=== PATIENT | female | born 1955 | race Caucasian/White ===

== ENCOUNTER 2024-04-24 11:32 | Emergency (ER) | payer MEDICARE, OTHER, SELFPAY ==
[2024-04-24 11:53] VITALS: BP 114/67; PULSE 69; RESP 18; TEMP 36.9; O2SAT 97; BMI 22.7
--- NOTE | 2024-04-24 12:39 | ED_ITS ---
HPI - General Adult General Date Seen: 04/24/24 Chief complaint: Dizziness/Vertigo Stated complaint: Vertigo/lightheaded Time Seen by Provider: 04/24/24 12:32 History of Present Illness HPI narrative: 68-year-old female presenting to the ER today for spinning dizziness and vertigo. She is generally healthy. 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 She her current symptoms began yesterday evening at about 11 30 or 11:45 p.m. when she was going to bed. She was feeling healthy and normal prior to going to bed. When she laid down in bed, she went from sitting up to laying flat on her back and had abrupt onset of spinning dizziness and vertigo. It lasted about 30 seconds and got better after she sat up and held still. She noticed it happened 2 or 3 more times each time it was triggered by laying down in bed and better by holding still and sitting. She was able to sleep last night but was woken multiple times because when she would roll over she would get dizziness. She felt spinning and a bit nauseous. She did not vomit. This morning when she got up she initially thought she was feeling okay. She was apprehensive about walking because she was afraid of my trigger dizziness and imbalance but she was able to walk. She was able to get up, do her morning routine and even brush her teeth and feel fine. She always does 20 squats in the morning and while doing or squat she again triggered an episode of spinning. She also noted the episode was triggered by bending over to touch her toes. She is not having any other symptoms with the vertigo. No headache. No blurry vision. No vomiting. No focal numbness or weakness. No speech disturbance. No facial droop. She does not have a headache. No recent head trauma. She is not anticoagulated. Incidentally she has also had other neurologic events. For the past 3 years ago so she has had brief episodes that last about 5/10 seconds each time where she will abruptly have difficulty with words. She will not be able to talk and will have trouble reading and understanding letters and will not be able to write letters. No other symptoms come with these episodes. She has already had a workup, through [facility] neurology clinic about 3 years ago. She apparently had a brain MRI that was normal and an EEG that was normal. She says her neurologist told her that she was having seizures. He prescribed a seizure medication and told her to start taking it. She was unconvinced about the diagnosis and says reluctant take the medications so she never took it. She also recalls that she had a pretty negative interaction with that neurologist. She says she will never go back to see that provider again. She has been having these episodes. They do not happen every day but they happen most days. Typically once per day. Last week she actually had 3 episodes in 1 day but that was unusual for her. Often times she can go several days, even up to 4 or 5 days without having an event. She is not having any increased frequency of those events and has not had any last night or today. Related Data Previous Rx's ?Medication ?Instructions ?Recorded meclizine 25 mg chewable tablet 25 mg PO TID PRN #15 tabs 04/24/24 (Antivert) Allergies Allergy/AdvReac Type Severity Reaction Status Date / Time toothpaste Allergy Intermediate Blister Uncoded 04/24/24 11:52 Exam Narrative: Exam Narrative: Constitutional: Appears well-developed and well-nourished. Alert. Conversant. Non toxic. HENT: Head: Atraumatic. No depressed skull fracture, Raccoon Eyes, Martinez's sign, or hemotympanum. Face normal. TMs normal Canals and TMs are normal bilaterally. Nose: Nose normal. Mouth/Throat: Oral mucosa is clear and moist. no trismus. Pharynx normal. Tonsils symmetric. No tonsillar enlargement, erythema, or exudate. Eyes: Conjunctivae normal. EOM normal. Pupils equal, round, and reactive to light. No scleral icterus. Neck: Normal range of motion. Neck supple. No tracheal deviation present. Cardiovascular: Normal rate, regular rhythm. No gallop. No friction rub. No murmur heard. Symmetric radial artery pulses Pulmonary/Chest: Effort normal. No stridor. No respiratory distress. No wheezes. No rales. No rhonchi . No tenderness. Abdominal: Soft. Bowel sounds normal. No distension. No mass. No tenderness. No rebound. No guarding. Musculoskeletal: RUE: Normal range of motion. No tenderness. No deformity LUE: Normal range of motion. No tenderness. No deformity RLE: Normal range of motion. No edema. No tenderness. No deformity LLE: Normal range of motion. No edema. No tenderness. No deformity Lymph: No cervical adenopathy. Neurological: Mental status normal. Attention normal. Alert and oriented x3. GCS 15. Memory normal. Speech fluent. Cognition normal. Cranial Nerves intact II-XII except I did not formally test gag or visual acuity. EOMI. Palate elevates symmetrically and tongue protrudes in the midline. Strength: 5/5 trapezius on the right and left 5/5 deltoid on the right and left 5/5 biceps on the right and left 5/5 triceps on the right and left 5/5 military logistics specialist on the right and left 5/5 thumb opposition on the right and le ft 5/5 finger abduction on the right and le ft 5/5 hip flexors (L3) on the right and le ft 5/5 quadriceps (L4) on the right and lef t 5/5 tibialis anterior on the right and l eft 5/5 EHL (L5) on the right and left 5/5 gastrocnemius (S1) on the right and left 5/5 hamstring on the right and left Sensation intact to light touch in both upper extremities (C4-T1) Sensation intact to light touch in Both lower extremities (L4-S1). Finger to nose and coordination normal. Gait normal. No ataxia. She does not have any vertigo when sitting up with her head facing forward but vertigo was triggered when she turns her head either to the left or to the right. She feels a brief but intense episode of spinning that lasts less than 30 seconds or so. [place]-Hallpike is negative in both directions but her vertigo is triggered by sitting up or bending down the touch her toes, or turning her head to the left or to the right. No other symptoms aside from vertigo. Skin: Skin is warm and dry. No rash noted. No pallor. Normal capillary refill. Psychiatric: Normal mood. Normal affect. Const: Vital Signs, click to edit/add: Vital Signs - 24 hr 04/24/24 11:53 Temperature 98.4 F Pulse Rate [Pulse Oximeter] 69 Respiratory Rate 18 Blood Pressure [Ri ght Upper Arm] 114/67 Pulse Oximetry 97 Oxygen Delivery Me thod Room Air Course Vital Signs Vital signs: Initial Vital Signs Temperature 98.4 F 04/24/24 11:53 Temperature Source Temporal Artery Scan 04/24/24 11:53 Pulse Rate 69 04/24/24 11:53 Respiratory Rate 18 04/24/24 11:53 Blood Pressure 114/67 04/24/24 11:53 Blood Pressure Mean 82 04/24/24 11:53 Pulse Oximetry 97 04/24/24 11:53 Oxygen Delivery Method Room Air 04/24/24 11:53 Vital Signs Temperature 98.4 F 04/24/24 11:53 Pulse Rate 69 04/24/24 11:53 Respiratory Rate 18 04/24/24 11:53 Blood Pressure 114/67 04/24/24 11:53 Pulse Oximetry 97 04/24/24 11:53 Oxygen Delivery Method Room Air 04/24/24 11:53 Temperature 98.4 F 04/24/24 11:53 Pulse Rate 69 04/24/24 11:53 Respiratory Rate 18 04/24/24 11:53 Blood Pressure 114/67 04/24/24 11:53 Pulse Oximetry 97 04/24/24 11:53 Oxygen Delivery Method Room Air 04/24/24 11:53 Medications Administered Medications: Discontinued Medications Generic Name Dose Route Start Last Admin Trade Name Freq PRN Reason Stop Dose Admin Meclizine HCl 25 mg 04/24/24 13:34 04/24/24 14:10 Meclizine Hcl 25 Mg Tablet PO 04/25/24 14:00 25 mg TID PRN Administration Medical Decision Making [facility] Narrative Medical decision making narrative: This patient presents for evaluation of dizziness c/w vertigo that began abruptly last night when she went from sitting to lying down flat in her bed. It has been recurrent in brief but intense episodes ever since then with certain movements including turning her head to the right or left, and or bending forward to tie her shoes, or going from sitting to laying or laying to sitting. No other current neurologic symptoms to go with vertigo.. The differential diagnosis of vertigo is broad and includes common etiologies such as menieres disease, labyrinthitis, benign positional vertigo, otitis media, etc. More serious etiologies considered include central etiologies such as tumor, intracerebral bleed, dissection, ischemic cerebral vascular accident. The history, physical exam including detailed neurologic exam, and workup in the emergency room suggests a benign cause of vertigo today. Patient feels improved after interventions noted above. Further outpatient management is indicated with vertigo medications. History and clinical exam exam is reassuring. By history this is very suspicious for BPPV. I am not able to trigger symptoms by Delroy-Hallpike, suggesting this is probably not in the posterior canal. Suspect she probably has BPPV is affecting a different canal. No indication for advanced imaging at this point (CT/MRI) as there are no definite signs of a central and concerning etiology for the vertigo. Vertigo precautions given for home. Incidentally she also notes that she has had another pattern of neurologic symptoms where she gets very brief events where she has trouble with what sounds like receptive and expressive aphasia. These happen every couple of days or so for the past 3 years and typically last 5 or 10 seconds and resolve on their own. She has already had a workup through [facility] 3 years ago and was told by that doctor that these were probably partial seizures. He recommended seizure meds at that time. However she was unconvinced by the recommendation and never started the meds. She is not having any of those events since her and vertigo symptoms started yesterday. She is clearly having fluent speech here. She has no other focal neurologic deficits in this point. At this point I do not think she needs a workup for stroke or TIA. However, I discussed in detail with the patient and her that she really should have another workup with Neurology to determine whether not these actually are partial seizures. If they are, they would warrant treatment. She will follow- up with her PCP to arrange another neurology consult. Discharge Plan Discharge Clinical Impression: Benign paroxysmal positional vertigo Patient Disposition: Home, Self-Care Condition: Stable Instructions: Vertigo (DC), Benign Paroxysmal Positional Vertigo (DC) Additional Instructions: As we discussed, please come back to the ER right away if you have worsening vertigo, or any other concerning symptoms such as headache, uncontrolled nausea or vomiting, spells of vertigo that lasts longer than 1 minute, any new trouble with her speech, numbness or weakness in her arms or legs, or any problems. You can use meclizine every 8 hours as needed help suppress the vertigo symptoms. Avoid dangerous activities like skiing until you are free from vertigo. Please recheck with your regular doctor next week to recheck for your vertigo and ask your regular doctor to give you a new referral for a neurologist to check the events related to your speech. Remember, if you have any problems, please come back to the ER right away. Prescriptions: New meclizine [Antivert] 25 mg tablet,chewable 25 mg PO TID PRNQty: 15 0RF Follow Up/Referrals: Chelly Metcalf MD [Primary Care Provider] - Stand Alone Forms: [id number] Info Instructions
[2024-04-24] MEDS: MECLIZINE HCL 25 MG TABLET PO (14:10)
== END 2024-04-24 14:24 | disposition home or self-care (01) ==
LOC: ED 14:17
PROVIDERS: Emergency Provider Emergency Medicine; PCP Family Medicine
DX: H81.13 Benign paroxysmal vertigo, bilateral (principal)
CPT/HCPCS: 99283; A9270

== ENCOUNTER 2025-02-04 17:37 | Observation (INO) | payer MEDICARE, OTHER, SELFPAY ==
[2025-02-04] VITALS (20 sets, daily range): BP systolic 126–163; BP diastolic 88–106; PULSE 56–72; RESP 12–153; TEMP 36.4–37.1; O2SAT 95–100; BMI 23.5; BMI 23.7
--- OUTSIDE RECORDS SUMMARY | 2025-02-04 17:39 | XMS_ITS | Clinical Summary ---
Author Organization [facility] Address [address] [place] [address]. [place] [address] Care Team Providers Care Sales And Management Trainee Name Role Phone Chelly Metcalf Primary Care Provider [phone] Roberto Barclay MD Unavailable + [phone] Allergies Active Allergy Reactions Criticality Noted Date Comments Epinephrine Palpitations Low 09/22/2011 Other Reaction(s): Tachycardia Noted at the Dental office Medications vitamin C (ASCORBIC ACID) 500 MG tablet Take 500 mg by mouth. Active calcium carbonate 500 mg, elemental, (OSCAL 500) 1250 (500 Ca) MG TABS tablet daily. Activ e VITAMIN E PO Take by mouth. Active lamoTRIgine (LAMICTAL) 25 MG tabletIndicatio ns:Simple partial seizures (H),Spells of speech arrest Take 1 tablet (25 mg) by mouth 2 times daily. 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 Gender Identity Not on file Sexual Orientation Not on file Last Filed Vital Signs Vital Sign Reading Time Taken Comments Blood Pressure 125/80 08/26/2024 11:32 AM CDT Pulse 60 08/26/2024 11:32 AM CDT Temperature - - Respiratory Rate - - Oxygen Saturation - - Inhaled Oxygen Concentration - - Weight 60.3 kg (133 lb) 08/26/2024 11:32 AM CDT Height 160 cm (5' 3) 08/26/2024 11:32 AM CDT Body Mass Index 23.56 08/26/2024 11:32 AM CDT Plan of Treatment Upcoming Encounters Date Type Department Care Team (Late st Contact Info) Description 03/31/2025 10:00 AM AGRICULTURAL REAL ESTATE AGENT Office Visit [facility] [place] [address] [place] [address] Roberto Barclay MD [address] [place] [address] Health Maintenance Due Date Last Done Comments ADVANCE CARE PLANNING 1955 ANNUAL REVIEW OF HM ORDERS 1956 CT COLONOGRAPHY 1956 DEXA 1955 DIABETES SCREENING 1955 FIT 1956 FLEX SIG 1956 sDNA (Cologuard) 1956 HEPATITIS C SCREENING 1974 LIPID 1996 PNEUMOCOCCAL VACCINE 50+ YEARS (1 of 1 - PCV) 2006 ZOSTER VACCINE (1 of 2) 2006 FALL RISK ASSESSMENT 2021 DTAP/TDAP/TD VACCINE (2 - Tdap) 09/21/2021 09/22/2011 COVID-19 VACCINE (1 - 2024-2 6 season) 2024 INFLUENZA VACCINE (#1) 2024 MEDICARE ANNUAL WELLNESS VISIT 06/07/2025 06/07/2024 MAMMO SCREENING 06/07/2026 06/07/2024, 06/07/2024, 04/05/2022 RSV VACCINE (1 - 1-dose 75+ series) 08/23/2031 COLONOSCOPY 06/28/2032 06/28/2022 COLORECTAL CANCER SCREENING 06/28/2032 PHQ-2 (once per calendar year) Completed 08/26/2024 HPV VACCINE (No Doses Required) Completed MENINGITIS VACCINE Aged Out No longer eligible based on patient's age to complete this topic Insurance [employer] [facility] Care Teams Sales And Management Trainee Relationship Specialty Start Date End Date Chelly Metcalf [address] [place] [address] PCP - General Family Medicine 07/17/24 Roberto Barclay MD [address] [place] [address] Assigned Neuroscience Provider 09/20/24
--- OUTSIDE RECORDS SUMMARY | 2025-02-04 17:39 | XMS_ITS | Clinical Summary ---
Author Organization [facility] Address [address] [place] [id number] Care Team Providers Care Plant Maintenance Mechanic Name Role Phone Elsewhere, Pcp Primary Care Provider Unavailabl e Source Comments Patient records contain information from all sites at [facility]. For routine questions regarding patient records, call [phone] during business hours, M-F 8:00 AM - 5:00 PM Central Time. Record requests for emergency care only can be directed to [phone] at any time.[facility] Allergies Active Allergy Reactions Criticality Noted Date Comments Epinephrine Palpitations Low 09/22/2011 Noted at the Dental office Fluoride Toothpaste Other (see comments) 2021 Swollen lips, mouth Medications calcium carbonate/vitam in D3 (CALCIUM WITH VITAMIN D ORAL) Calcium 600+D 1 Active multivitamin capsule multivitamin 1 Active omega-3/dha/epa /dpa/fish oil (OMEGA-3 2100 ORAL) Take 1 capsule by mouth daily. 1 Active ascorbic acid, vitamin C, (VITAMIN C) 500 mg tablet Take 500 mg by mouth daily. Active latanoprost (XALATAN) 0.005 % ophthalmic solution Administer 1 drop into both eyes at bedtime. 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 Bilateral 0 12/04/2023 Resolved Problems Problem Noted Date Diagnosed Date Resolved Date Glaucoma Open-Angle Mild Stage 04/01/2022 12/04/2023 Family History Medical History Relation Name Comments Cardiac arrhythmia Father pacemaker Lymphoma Father Cataracts Mother Coronary artery disease Mother Glaucoma Mother Glaucoma Sister Hypertension Sister Amblyopia Neg Hx Blindness Neg Hx Macular degeneration Neg Hx Retinal degeneration Neg Hx Retinal detachment Neg Hx Relation Name Status Comments Father Mother Sister Social History Tobacco Use Types Packs/Day Years Used Date Smoking Tobacco: Never Smokeless Tobacco: Never Tobacco Cessation:Counseling Given: Not Answered Alcohol Use Standard Drinks/Week Comments Never 0 (1 standard drink = 0.6 oz pur e alcohol) Comments Unknown Sex and Gender Information Value Date Recorded Sex Assigned at Not on file Legal Sex Female 6:02 AM CORRESPONDENCE TRANSCRIBER Gender Identity Not on file Sexual Orientation Not on file Plan of Treatment Health Maintenance Due Date Last Done Comments Bone Density Scan (Osteoporosis Screen) 1956 CT Colonography 1956 Cologuard 1956 FIT 1956 Hepatitis C Screening 1956 Pneumococcal vaccine (50+ years) (1 of 1 - PCV) 2006 Zoster Vaccines (1 of 2) 2006 DTaP,Tdap,and Td Vaccines (2 - Tdap) 09/21/2021 09/22/2011 Depression Screening (Annual PHQ-2) 05/01/2024 Fall Risk Screen (Annual) 05/01/2024 COVID-19 Vaccine (1 - 2024- season) 2024 Influenza Vaccine (#1) 2024 Mammogram 06/07/2025 06/07/2024, 02/10/2024, 04/05/2022, Additional history exists Fasting Glucose for Diabetes Screening 06/07/2027 06/07/2024, 06/07/2024, 12/25/2020, Additional history exists Colonoscopy 06/28/2032 06/28/2022 Colorectal Cancer Screening 06/28/2032 IPV Vaccines Aged Out No longer eligi ble based on patient's age to complete [place] [address] MEDICARE Care Teams Plant Maintenance Mechanic Relationship Specialty Start Date End Date Elsewhere, Pcp PCP - General Family Medicine 08/21/17
--- OUTSIDE RECORDS SUMMARY | 2025-02-04 17:39 | XMS_ITS | Clinical Summary ---
Author Organization Active [facility] Address [address] [place] [id number] Care Team Providers Care Spare Fixer Name Role Phone Chelly Metcalf MD Primary Care Provide r Allergies Active Allergy Reactions Criticality Noted Date Comments Epinephrine Tachycardia 09/22/2011 Noted at the Dental office Fluoride Toothpaste Other - Describe In Comment Field 11/26/2021 Swollen lips, mouth No Known Drug Allergies 01/31/2008 Medications ascorbic acid, vitamin C, (VITAMIN C) 500 mg tablet Take 500 mg by mouth. Active calcium carbonate (OS-EMY 500) 500 mg calcium (1,250 mg) tablet Daily Active multivitamin (MVI) tablet Take 1 Tablet by mouth once daily. 06/07/2024 Active lamoTRIgine 25 mg tablet Take 25 mg by mouth. 10/22/2024 Active Active Problems Problem Noted Date Diagnosed Date Personal history of colonic polyps 09/07/2011 Overview (06/28/2022): Colonoscopy 08/2011 diverticulosis repeat in 5 years Colonoscopy 06/2022 diverticulosis , repeat in 7-10 years Resolved Problems Problem Noted Date Diagnosed Date Resolved Date Alcoholism 05/03/2021 06/07/2024 Encounters Date Type Department Care Team Description 01/29/2025 9:45 AM CDT Office Visit [facility] [address] [address] Edith Palomo, Derm Problem 01/29/2025 Travel from Last 3 Months Immunizations Immunization Administration Dates Next Due DTaP 09/22/2011 Family History Medical History Relation Name Comments No Known Problems Daughter Reva Winter Heart Disease Father Julio Wallace pacemaker Other Father Julio Wallace MS Glaucoma Mother Mackenzie Wallace Heart Disease Mother Mackenzie Wallace stents Hemochromatosis Sister 1 Mishel Thyroid Disease Sister 2 Giovanna Overactive Diabetes Sister 3 Marizol Glaucoma Sister 4 Carlee Hemochromatosis Sister 4 Carlee Thyroid Disease Sister 4 Carlee Underactive Cancer-breast Sister 6 Mayo Hypertension Sister 6 Mayo No Known Problems Son 1 Danielwinter No Known Problems Son 2 winter Relation Name Status Comments Brother Jaguar Alive Daughter Reva Winter Alive Father Julio Wallace Alive Maternal Grandfather Maternal Grandmother Mother Mackenzie Wallace Alive Paternal Grandfather Paternal Grandmother Sister 1 Mishel Alive Sister 2 Giovanna Alive Sister 3 Marizol Alive Sister 4 Carlee Alive Sister 5 Shikha Alive Sister 6 Mayo Alive Sister 7 Shereen Alive Son 1 winter Alive Son 2 winter Alive Social History Tobacco Use Types Packs/Day Years Used Date Smoking Tobacco: Former Cigarettes 1 20 Smokeless Tobacco: Former Quit: 09/09/1993 Tobacco Cessation:Counseling Given: Yes Alcohol Use Standard Drinks/Week Comments No 0 (1 standard drink = 0.6 oz pur e alcohol) PHQ-2 Answer Date Recorded PHQ-2 TOTAL SCORE 0 06/07/2024 Social Connections Answer Date Recorded Do you often feel lonely or isolated from those around you? 0 06/07/2024 Financial Resource Strain Answer Date R ecorded Difficulty of Paying Living Expenses 3 06/07/2024 Difficulty of Paying Living Expenses Not on file 06/07/2024 Food Insecurity Answer Date Recorded Do you worry your food will run out before you are able to buy more? 1 06/07/2024 Transportation Needs Answer Date Record ed Does lack of transportation keep you from medica l appointments? 1 06/07/2024 Does lack of transportation keep you from work, meetings or getting things that you need? 1 06/07/2024 Housing Stability Answer Date Recorded What is your housing situation today? 1 06/07/2024 Utilities Answer Date Recorded Do you have trouble paying f or utilities (for example, heat, electricity, water, phone)? 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 Not on file Not on file Obstetrics History Last Filed Vital Signs Vital Sign Reading Time Taken Comments Blood Pressure 84/52 06/07/2024 8:19 AM WEB METHODS DEVELOPER Pulse 64 06/07/2024 8:19 AM WEB METHODS DEVELOPER Temperature 36.8 C (98.3 F) 05/03/2021 3:52 PM WEB METHODS DEVELOPER Respiratory Rate 16 06/28/2022 3:35 PM WEB METHODS DEVELOPER Oxygen Saturation 99% 06/07/2024 8:19 AM WEB METHODS DEVELOPER Inhaled Oxygen Concentration - - Weight 59.9 kg (132 lb) 06/07/2024 8:19 AM WEB METHODS DEVELOPER Height 160 cm (5' 3) 06/07/2024 8:19 AM WEB METHODS DEVELOPER Body Mass Index 23.38 06/07/2024 8:19 AM WEB METHODS DEVELOPER Plan of Treatment Health Maintenance Due Date Last Done Comments Tetanus booster 08/23/1967 Hepatitis C screening for age 18-79 1974 Pneumococcal series for age 50+ (1 of 1 - PCV) 2006 Zoster (shingles) series for age 50+ (1 of 2) 2006 DEXA/DXA scan for age 65+ 2021 COVID-19 vaccine series (1 - season) 2024 Influenza Vaccine (#1) 2024 BMI (ht and wt on same day) for age 18+ 06/07/2025 06/07/2024, 11/02/2020, 10/14/2020, Additional history exists Depression screening for age 12+ 06/07/2025 06/07/2024, 05/04/2021, 05/03/2021 Mammogram for age 45-75 06/07/2025 06/07/19, 04/05/2022, 10/14/2020, Additional history exists Medicare Wellness for age 65+ 06/08/2025 06/07/2024 Lipids for age 45-75 06/07/2029 06/07/2024, 10/14/2020, 12/23/2016, Additional history exists Colonoscopy through age 75 06/28/202906/28, 06/28/2022, 01/13/2017, Additional history exists RSV vaccine for adults or (1 - 1-dose 75+ series) 08/23/2031 Hepatitis B series for 19+ Aged Out N o longer eligible based on patient's age to complete this topic Procedures Procedure Name Priority Date/Time Associated Diagnosis Comments XR MAMMO CECILIO BILAT SCREEN Routine 06/07/2024 9:33 AM WEB METHODS DEVELOPER Visit for screening mammogram LIPID PANEL W REFLEX MEASURED LDL Routine 06/07/2024 9:10 AM WEB METHODS DEVELOPER Lipid screening COLONOSCOPY 06/28/2022 1:52 PM WEB METHODS DEVELOPER from Last 3 Months or Most Recently Relevant to Health Maintenance Results * XR MAMMO CECILIO BILAT SCREEN (06/07/2024 9:33 AM WEB METHODS DEVELOPER) Anatomical Region Laterality Modality BREASTS, Breast Left, Breast Right Bilateral Mammography Impressions 06/07/2024 2:02 PM WEB METHODS DEVELOPER There is no radiographic evidence for malignancy. Recommend annual mammograms. MAMMOGRAM ASSESSMENT: ACR 1 Negative PATIENTS: You will also receive a letter with your examination results in an easy to read format. If you have questions about your results, please contact your referring provider. Narrative 06/07/2024 2:02 PM WEB METHODS DEVELOPER For Patients: As a result of the Century Cures Act, medical imaging exams and procedure reports are released immediately into your electronic medical record. You may view this report before your referring provider. If you have questions, please contact your health care provider. XR MAMMO CECILIO BILAT SCREEN [[id number]] CLINICAL HISTORY: This is an asymptomatic 68 y.o. patient. INDICATION FOR EXAM: Mammogram Screening. TECHNIQUE: CC & MLO views were obtained. This study was evaluated with the assistance of Computer-Aided Detection. Breast Tomosynthesis was used in interpretation. COMPARISON FILM: Yes 04/05/22 [facility] 10/14/20 [facility] FINDINGS: There are scattered areas of fibroglandular density. There are no dominant masses, suspicious micro calcifications or areas of architectural distortion. us Chelly Metcalf MD MAMMO Final Result * (ABNORMAL) LIPID PANEL W REFLEX MEASURED LDL (06/07/2024 9:10 AM WEB METHODS DEVELOPER) CHOLESTEROL, TOTAL 231(H) <200 mg/dL [facility] HDL CHOLESTEROL 79 > OR = 50 mg/dL [facility] TRIGLYCERIDES 100 <150 mg/dL [facility] LDL-CHOLESTEROL 131(H) mg/dL (calc) [facility] Comment: Reference range: <100 Desirable range <100 mg/dL for primary prevention; <70 mg/dL for patients with CHD or diabetic patients with > or = 2 CHD risk factors. LDL-C is now calculated using the Ankita calculation, which is a validated novel method providing better accuracy than the Friedewald equation in the estimation of LDL-C. Ernesto HINKLE et al. MANDI. 2013;310(19): 5061-0114 (http://education.[employer]/faq/GDC177) CHOL/HDLC RATIO 2.9 <5.0 (calc) [facility] NON HDL CHOLESTEROL 152(H) <130 mg/dL (calc) [facility] Comment: For patients with diabetes plus 1 major ASCVD risk factor, treating to a non-HDL-C goal of <100 mg/dL (LDL-C of <70 mg/dL) is considered a therapeutic option. Blood BLOOD SPECIMEN / Unknown 06/07/2024 9:10 AM WEB METHODS DEVELOPER 06/07/2024 9:11 AM WEB METHODS DEVELOPER us Chelly Metcalf MD CHEMISTRY Final Result Portable Internet [facility] [address] [place] [address], [facility] [address] [place] [address] * COLONOSCOPY (06/28/2022 1:52 PM WEB METHODS DEVELOPER) 06/28/2022 1:52 PM WEB METHODS DEVELOPER Narrative Transcriptions Liza, Ernesto Collins MD - 06/28/2022 3:22 PM CST Patient Name: Chelly Amador Procedure Date: 06/28/2022 Gender: Female Date of : 1955 Admit Type: Outpatient Procedure: Colonoscopy Proceduralist: Ernesto De Jesus MD , Roxana Masters (Nurse), Radha Lopez (Nurse) Indications/Pre-Op Diagnosis: High risk colon cancer surveillance:Personal history of colonic polyps, Last colonoscopy: December 2016 Medications: Fentanyl 100 micrograms IV, Midazolam 2 mgIV, The level of sedation administered wasmoderate Procedure Description: The patient had risks, benefits and alternatives explained to andgave informed consent. The patient had a stable cardiopulmonary status and judged an adequate candidate for conscious sedation. The endoscope [id number]-[id number] was passed through the anus andadvanced to the cecum, identified by appendiceal orifice and ileocecal valve.The colonoscopy was performed without difficulty. The patient toleratedthe procedure well. The quality of the bowel preparation was good. The ileocecal valve, appendiceal orifice, and rectum were photographed. Complications: No immediate complications. Estimated Blood Loss & Specimen: Estimated blood loss: none. Specimen collected - None Findings: The perianal and digital rectal examinations were normal. Scattered small and large-mouthed diverticula were found in theentire colon. The exam was otherwise without abnormality. Impressions/Post-Op Diagnosis: - Diverticulosis in the entire examined colon. - The examination was otherwise normal. - No specimens collected. Recommendation: - Patient has a contact number available for emergencies. The signsand symptoms of potential delayed complications were discussed with the patient. Return to normal activities tomorrow. Written discharge instructions were provided to the patient. - Resume previous diet. - Continue present medications. - Repeat colonoscopy in 7-10 years for surveillance. Moderate Sedation: A time out was performed before the procedure. Moderate (conscious) sedation was administered by the endoscopy nurse and supervised bythe endoscopist. The following parameters were monitored: oxygensaturation, heart rate, blood pressure, EKG, CO2, respiratory rate, adequacy of pulmonary ventilation and reponse to care. Please refer to the patient's medical record flowsheets and nursing notes for moderate sedation details. Total physician intraservice time was 178 minutes. Ernesto De Jesus MD 06/28/2022 3:22:30 PM This report has been signed electronically. Note Initiated On: 06/28/2022 1:52 PM Procedure Code(s): --- Professional --- 16419, Colonoscopy, flexible; diagnostic, including collection of specimen(s) bybrushing or washing, when performed (separateprocedure) Diagnosis Code(s): --- Professional --- Z86.010, Personal history of colonicpolyps K57.30, Diverticulosis of large intestine without perforation or abscess withoutbleeding CPT copyright 2020 [employer]. All rights reserved. The codes documented in this report are preliminary and upon performance test engineer reviewmay be revised to meet current compliance requirements. Scope In: 3:02:18 PM Scope Withdrawal Time 0 hours 6 minutes 51 seconds Scope Out: 3:17:01 PM us Ernesto De Jesus MD PROCEDURE ORD Final Res ult from Last 3 Months or Most Recently Relevant to Health Maintenance Insurance [employer] PB ONLY Care Teams Spare Fixer Relationship Specialty Start Date End Date Chelly Metcalf MD [address] [place] [address] PCP - General 10/28/05
--- NOTE | 2025-02-04 18:02 | ED_ITS ---
HPI - General Adult General Chief complaint: Neuro Symptoms/Altered Deficit Stated complaint: L arm tingling Time Seen by Provider: 02/04/25 17:50 History of Present Illness HPI narrative: pt here with numbness in her left arm that started this am about 0715, as she was driving here she noticed it traveled up her left side of the jaw, denies chest pain or shortness of breath, sober from ETOH 4. 5yrs 69-year-old woman presenting to the emergency department with concern of some tingling or numbness sensation in her left arm. About 14 hours ago she did wake thinking maybe she had slept on her left arm. Symptoms have continued through the day; stretching and exercise has not really changed anything. She did get the sense that maybe she was going to have headache left side of her head but that never really evolved. Has been a little sore in the left side of her neck. Does not recall specific injury. She does note that 2 weeks ago got bit at the left wrist dorsal side and it is small area of blanched color and has been quite itchy and admittedly is clearly better today. Has not had any discoordination. No focal weakness. Does have a history of BPPV seen in this department March of 2024. Had been seen prior to that in this facility with some difficulty with reading and understanding letters. Suspected transient global amnesia. A few years ago did have a normal brain MRI and normal EEG with concern of potential seizures. Has not been treating that and has not returned to that neurologist. Clarifying later that these episodes of inability to speak intermittently, upon 2nd opinion with Neurology, might represent seizure-like activity and after other antiepileptic was switched 10 weeks ago to lamotrigine. Related Data Home Medications ?Medication ?Instructions ?Recorded ?Confirmed lamotrigine 25 mg tablet 12.5 mg PO BID 02/04/25 10/12/23 Allergies Allergy/AdvReac Type Severity Reaction Status Date / Time epinephrine AdvReac Palpitation Verified 02/04/25 18:12 s toothpaste Allergy Intermediate Blister Uncoded 04/24/24 11:52 Review of Systems Status of ROS: Reports: 6 or more systems reviewed and unremarkable except as noted in History and below [facility] Medical History Alcohol use disorder ?F10.90 - Alcohol use, unspecified, uncomplicated (ICD-10) Memory difficulty ?R41.3 - Other amnesia (ICD-10) C7 radiculopathy ?M54.12 - Radiculopathy, cervical region (ICD-10) Vertigo ?R42 - Dizziness and giddiness (ICD-10) Dysarthria ?R47.1 - Dysarthria and anarthria (ICD-10) Transient global amnesia ?G45.4 - Transient global amnesia (ICD-10) Spells of speech arrest ?R47.89 - Other speech disturbances (ICD-10) Right inguinal hernia ?K40.90 - Unilateral inguinal hernia, without obstruction or gangrene, not specified as recurrent (ICD-10) Simple partial seizures ?G40.109 - Localization-related (focal) (partial) symptomatic epilepsy and epileptic syndromes with simple partial seizures, not intractable, without status epilepticus (ICD-10) Social History What is your current living situation?: I presently have a place to live Problems where you live: no known problems In the past 12 months, utilities in danger of being shut off: no In past 12 months, lack of transportation kept you from medical appts, meetings, work, or getting things needed for daily living: no In the past 12 mos, have been you worried that your food would run out before you had money to buy more?: never true In the past 12 mos, the food you bought just didn't last and you didn't have money to buy more?: never true Highest level of school completed/degree received: Associate degree: occupational, technical, vocational program Smoking Status: Never smoker How often do you have a drink containing alcohol: never AUDIT-C Alcohol total score: 0 Non-prescribed substance use: denies use Caffeine: No How often does anyone, including family, friends and others, physically hurt you : never How often does anyone, including family, friends and others, insult or talk down to you: never How often does anyone, including family, friends and others, threaten you with harm: never How often does anyone, including family, friends and others, scream or curse at you: never service: No Exam Narrative: Exam Narrative: Pleasant. NAD. Breathing easily. Skin is warm and dry. Mildly distinguishable subcentimeter slightly line therapist [place]/oval in the dorsum of the ulnar wrist without inflammatory changes or swelling. She is well-perfused peripherally. Moving all extremities fluidly without difficulty. Has excellent strength throughout. Reports a sensation of numbness in her finger tips and tingling upon touch into her forearm dorsal in particular. Neck is supple and not particularly tender. Flexion to the left does cause some more discomfort though in the left neck. Spurling's is negative. No pain to palpation posterior neck. Back and shoulders periscapular area without reproducible pain. Cranial nerves 2-12 intact. Pupils are 3 mm brisk and equal. Extraocular movements are full. Normal point point. Heart in regular rate and rhythm without murmur rub or gallop. No pulsatile neck masses. Const: Vital Signs, click to edit/add: Vital Signs - 24 hr 02/04/25 17:50 02/04/25 18:08 02/04/25 18:09 Temperature 98.7 F Pulse Rate 71 70 Pulse Rate [Right Pulse Oximeter] 72 Respiratory Rate 18 18 17 Blood Pressure 163/89 H Blood Pressure [Ri ght Upper Arm] 158/97 H Pulse Oximetry 98 99 99 Oxygen Delivery Me thod Room Air 02/04/25 18:15 02/04/25 18:30 02/04/25 18:32 Temperature Pulse Rate 69 63 65 Pulse Rate [Right Pulse Oximeter] Respiratory Rate 12 18 14 Blood Pressure 152/106 H Blood Pressure [Ri ght Upper Arm] Pulse Oximetry 98 96 95 Oxygen Delivery Me thod 02/04/25 18:45 02/04/25 19:16 02/04/25 19:30 Temperature Pulse Rate 66 70 63 Pulse Rate [Right Pulse Oximeter] Respiratory Rate 16 14 153 H Blood Pressure Blood Pressure [Ri ght Upper Arm] Pulse Oximetry 95 99 98 Oxygen Delivery Me thod 02/04/25 19:32 02/04/25 19:45 02/04/25 20:00 Temperature Pulse Rate 62 66 67 Pulse Rate [Right Pulse Oximeter] Respiratory Rate 20 17 17 Blood Pressure 149/90 H Blood Pressure [Ri ght Upper Arm] Pulse Oximetry 98 97 99 Oxygen Delivery Me thod 02/04/25 20:02 02/04/25 20:16 02/04/25 20:30 Temperature Pulse Rate 68 64 Pulse Rate [Right Pulse Oximeter] Respiratory Rate 18 15 16 Blood Pressure 147/96 H Blood Pressure [Ri ght Upper Arm] Pulse Oximetry 98 99 Oxygen Delivery Me thod 02/04/25 20:32 Temperature Pulse Rate 64 Pulse Rate [Right Pulse Oximeter] Respiratory Rate 15 Blood Pressure 146/90 H Blood Pressure [Ri ght Upper Arm] Pulse Oximetry 99 Oxygen Delivery Me thod Documenting provider has reviewed patient's vital signs: yes Course Vital Signs Vital signs: Initial Vital Signs Temperature 98.7 F 02/04/25 17:50 Temperature Source Temporal Artery Scan 02/04/25 17:50 Pulse Rate 72 02/04/25 17:50 Respiratory Rate 18 02/04/25 17:50 Blood Pressure 158/97 H 02/04/25 17:50 Blood Pressure Mean 117 H 02/04/25 17:50 Blood Pressure Position Sitting 02/04/25 17:50 Pulse Oximetry 98 02/04/25 17:50 Oxygen Delivery Method Room Air 02/04/25 17:50 Vital Signs Temperature 98.7 F 02/04/25 17:50 Pulse Rate 72 02/04/25 17:50 Respiratory Rate 18 02/04/25 17:50 Blood Pressure 158/97 H 02/04/25 17:50 Pulse Oximetry 98 02/04/25 17:50 Oxygen Delivery Method Room Air 02/04/25 17:50 Temperature 97.7 F 02/05/25 08:00 Pulse Rate 62 02/05/25 08:00 Respiratory Rate 16 02/05/25 08:00 Blood Pressure 96/67 02/05/25 08:00 Pulse Oximetry 98 02/05/25 08:00 Oxygen Delivery Method Room Air 02/05/25 08:00 Medications Administered Medications: Generic Name Dose Route Start Last Admin Trade Name Freq PRN Reason Stop Dose Admin Aspirin 81 mg 02/05/25 09:00 02/05/25 09:19 Aspirin 81 Mg Tablet Ec PO 81 mg DAILY ROXANN Administration Enoxaparin Sodium 30 mg 02/04/25 21:00 02/04/25 22:39 Enoxaparin 30 Mg/0.3ml Inj SUBCUT 30 mg Q24H ROXANN Administration Lamotrigine 12.5 mg 02/04/25 21:45 02/05/25 09:19 Lamotrigine 25 Mg Tablet PO 12.5 mg BID ROXANN Administration Sodium Chloride 5 ml 02/04/25 21:00 02/05/25 08:05 Sodium Chloride 0.9 % (Flush) 10 Ml Syringe IVF 5 ml BID ROXANN Administration Discontinued Medications Generic Name Dose Route Start Last Admin Trade Name Dwight PRN Reason Stop Dose Admin Aspirin 325 mg 02/04/25 20:09 02/04/25 20:27 Aspirin Ec 325 Mg Tablet PO 02/04/25 20:10 325 mg ONCE ONE Administration Sodium Chloride 1,000 mls @ 1,000 mls/hr 02/04/25 18:38 02/05/25 00:47 0.9 % Sodium Chloride 1000 Ml IV 02/04/25 19:37 Infused .Q1H ONE Infusion Dextrose 1,000 mls @ 50 mls/hr 02/05/25 07:40 02/05/25 09:20 5 % Dextrose 1000 Ml IV 02/05/25 08:39 0 mls/hr .Q20H ROXANN Infusion Medical Decision Making MDM Narrative Medical decision making narrative: Appears to be experiencing radiculopathy neuropathy, paresthesia of some sort without loss of strength in the setting of some unusual neurological history being treated for potential seizures. This symptom however is atypical for her experience. Not clearly reproduced or emanating from the cervical spine or brachial plexus area. I would favor cervical radiculopathy? Chelly is also concerned perhaps this might represent Guillain-[place]. Did discuss this case with Stroke Neuro and, well certainly outside the window for lytics and with NIH stroke scale of 0 or 1 would recommend standard imaging for potential CVA and likely admission for monitoring and continuing workup as MRI is not available this evening. Did do CT imaging per protocols. I did review CT imaging independently. There is no bleed. No acute changes appreciated. Radiology over-read preliminary vascular studies head and neck also is unremarkable. Did receive L normal saline during time in the emergency department. Did notice some fading of the numb sensation in the fingertips. Labs notable for hyponatremia at 128. Reportedly this is atypical. Perhaps lamotrigine is contributing to hyponatremia? Discussed with hospitalist for admission, further monitoring and workup. Given a dose aspirin Medical Records Medical records reviewed: Yes I reviewed the patient's medical records Lab Data Lab results reviewed: Yes I reviewed the patient's lab results Labs: Lab Results 02/04/25 02/04/25 02/04/25 Range/Units 18:50 19:26 20:04 WBC 6.58 (4.50-11.00) K/uL RBC 4.18 (4.00-5.20) m/uL Hgb 12.8 (12.0-16.0) gm/dL Hct 37.5 (33.0-51.0) % MCV 90 (80-100) fL MCH 31 (26-34) pg MCHC 34 (32-36) gm/dL RDW Coeff of Cipriano 11.6 (11.5-15.5) % Plt Count 277 (140-440) K/uL Neut % (Auto) 72.4 H (42.0-72.0) % Lymph % (Auto) 19.1 L (20-44) % [place] % (Auto) 6.8 (0.0-11.0) % Eos % (Auto) 0.9 (0.0-7.0) % Baso % (Auto) 0.6 (0.0-3.0) % Neut # (Auto) 4.80 (1.7-7.0) K/uL Lymph # (Auto) 1.30 (0.90-2.90) K/uL [place] # (Auto) 0.40 (0.00-0.90) K/UL Eos # (Auto) 0.06 (0.00-0.50) K/uL Baso # (Auto) 0.04 (0.00-0.30) K/uL Abs Immat Gran (auto) 0.01 (0.00-0.30) K/uL Imm/Tot Granulo (auto) 0.2 % INR 0.96 (0.91-1.10) APTT 27 (23-33) Seconds Sodium 128 L (135-149) mmol/L Potassium 3.9 (3.6-5.1) mmol/L Chloride 95 L (96-114) mmol/L Carbon Dioxide 28 (20-32) mmol/L Anion Gap 5 L (7-15) mEq/L BUN 12 (7-30) mg/dL Creatinine 0.7 (0.5-1.5) mg/dL Estimated Creat Clear 46.50 Estimated GFR 94 ml/min Glucose 96 (60-115) mg/dL Calcium 8.9 (8.4-10.6) mg/dL Magnesium 2.1 (1.5-2.6) mg/dL TSH 2.070 (0.270-4.20) uIU/mL Urine Color Yellow (Yellow) Urine Appearance Clear (Clear) Urine pH 7.0 (5.0-8.5) Ur Specific [place] 1.010 (1.000-1.030) Urine Protein Negative (Negative) Urine Glucose (UA) Negative (Negative) Urine Ketones Negative (Negative) Urine Blood Trace-intact A (Negative) Urine Nitrite Negative (Negative) Urine Bilirubin Negative (Negative) Urine Urobilinogen 0.2 (0.2-1.0) Ur Leukocyte Esterase Negative (Negative) Urine RBC 0-2 (0-2) Urine WBC 0-2 (0-5) Ur Squamous Epith Cells None (None-Few) Urine Bacteria None (None) Ethyl Alcohol < 0.01 (0.01-0.03) % Lab Acknowledgement Test Added Test Added POC Creatinine 0.9 (0.6-1.3) mg/dl ECG Data Attestation: I personally reviewed and interpreted this ECG as follows: (Normal sinus rhythm at a rate of 67) Discharge Plan Discharge Clinical Impression: Paresthesia of arm, Hyponatremia Clinical Impression: (Ruled Out): Peripheral neuropathy Patient Disposition: Admitted As Observation Condition: Improved
--- NOTE | 2025-02-04 18:39 | CRLHL7_ITS ---
For Patients: As a result of the Century Cures Act, medical imaging exams and procedure reports are released immediately into your electronic medical record. You may view this report before your referring provider. If you have questions, please contact your health care provider. Indication: Left arm and hand tingling with numbness Technique: Noncontrast CT through the head with multiplanar reformats Comparison: MR brain performed 10/19/2020 Findings: Brain: No acute hemorrhage. No acute infarct. No significant mass effect or midline shift. No gross evidence of a mass lesion or cerebral edema. Mild chronic senescent . Ventricles: No acute abnormality appreciated. Orbits, sinuses, mastoids: No acute abnormality appreciated. Calvarium and soft tissues: No acute abnormality appreciated. Impression: No acute intracranial abnormality appreciated. Findings were communicated by telephone to Dr. Durbin at 1928 on 02/04/2025. Please note that all CT scans at this facility use dose modulation, iterative reconstruction, and/or weight-based dosing when appropriate to reduce radiation dose to as low as reasonably achievable. Dictated by Jose Roberto Flores MD @ 02/04/2025 7:31:01 PM (Electronically Signed)
--- NOTE | 2025-02-04 18:39 | CRLHL7_ITS ---
For Patients: As a result of the Century Cures Act, medical imaging exams and procedure reports are released immediately into your electronic medical record. You may view this report before your referring provider. If you have questions, please contact your health care provider. INDICATION: Acute stroke, left arm and hand paresthesias. TECHNIQUE: CTA head using intravenous contrast with bolus tracking, 3D angiographic rendering using maximum intensity projection (MIP) and images permanently archived. CTA neck using intravenous contrast with bolus tracking, 3D angiographic rendering using maximum intensity projection (MIP) and images permanently archived. FINDINGS: CTA head: There is normal opacification of the intracranial vasculature. There is no large vessel occlusion or significant intracranial stenosis. No aneurysm is identified. CTA neck: There is no significant carotid artery stenosis or dissection. There is no significant vertebral artery stenosis or dissection. Degenerative changes are noted in the cervical spine. Emphysema is present in the visualized lungs. IMPRESSION: No acute intracranial abnormality at CTA. No significant carotid or vertebral artery stenosis or dissection. Please note that all CT scans at this facility use dose modulation, iterative reconstruction, and/or weight-based dosing when appropriate to reduce radiation dose to as low as reasonably achievable. Dictated by Denny Waters MD @ 02/05/2025 8:25:52 AM (Electronically Signed)
[2025-02-04 19:07] LABS: Creatinine, Point-of-Care* 0.9 mg/dl (0.6-1.3); Hematocrit* 37.5 % (33.0-51.0); Hemoglobin* 12.8 gm/dL (12.0-16.0); Immature Granulocytes Abs Auto 0.01 K/uL (0.00-0.30); Immature Granulocytes Pct Auto 0.2 %; Mean Corpuscular HGB Conc 34 gm/dL (32-36); Mean Corpuscular Hemoglobin 31 pg (26-34); Mean Corpuscular Volume 90 fL (80-100); RDW Coefficient of Variation % 11.6 % (11.5-15.5); Red Blood Count* 4.18 m/uL (4.00-5.20); White Blood Count* 6.58 K/uL (4.50-11.00)
[2025-02-04 19:09] LABS: Lymphocytes Absolute Auto 1.30 K/uL (0.90-2.90); Slide Review Reflex No
[2025-02-04 19:20] LABS: Chloride* 95 mmol/L (96-114); Potassium* 3.9 mmol/L (3.6-5.1); Sodium* 128 mmol/L (135-149)
[2025-02-04 19:22] LABS: INR 0.96 (0.91-1.10); Prothrombin Time 13.6 Seconds
[2025-02-04 19:23] LABS: Anion Gap 5 mEq/L (7-15); Blood Urea Nitrogen* 12 mg/dL (7-30); Carbon Dioxide* 28 mmol/L (20-32); Creatinine* 0.7 mg/dL (0.5-1.5); Est. Creatinine Clearance* 46.50; Estimated Glomerular Filt Rate 94 ml/min
[2025-02-04 19:24] LABS: Calcium* 8.9 mg/dL (8.4-10.6); Glucose* 96 mg/dL (60-115)
[2025-02-04 19:38] LABS: Appearance Urine Clear (Clear)
[2025-02-04 20:05] LABS: Ethanol* < 0.01 % (0.01-0.03)
--- NOTE | 2025-02-04 20:15 | PM.IMHP1 ---
Assessment and Plan Assessment and plan (1) Paresthesias: Problem comment: -left arm numbness and tingling, onset approximately 0400 -CT/CTA head/neck show no acute abnormalities -notable sodium 128, remainder of labs otherwise rather unremarkable -ED provider discussed with the TeleNeurology recommending admission for observation -neurochecks, youth nutritional monitor, PT/OT, bedside swallow evaluation, lipids and A1c ordered, TSH pending -MRI and echocardiogram tomorrow -allow for permissive hypertension 220/120 -aspirin 81 mg (325 mg in ED) -follow-up with tele neurology tomorrow following completion of tests Status: Acute (2) Hyponatremia: Problem comment: -sodium 128 on admission -received 1 L NS in ED -fluid restriction -Lamictal poses low risk of hyponatremia but to be considered -history of alcohol use, reported as currently in remission, ETOH <0.01 Status: Acute (3) Simple partial seizures: Problem comment: -diagnosed July 2024, intermittent episodes since 2019 -continue Lamictal 12.5 mg b.i.d.- started approx 10 weeks ago. Lamictal level ordered in ED -seizure precautions -followed by [facility] neurology Status: Acute (4) Dysarthria: Problem comment: -onset 2019 -thought to be simple partial seizures -lamictal Status: Acute (5) C7 radiculopathy: Problem comment: -noted neurology evaluation 08/26/2024, neck pain/left arm pain (does not recall paresthesias related to this) -MRI 10/01/2021: 1. Multilevel cervical spondylosis. 2. No high-grade spinal canal stenosis or extrinsic cord deformity 3. Cervical cord signal is normal 4. C6-7 moderate left foraminal stenosis with impingement exiting left C7 nerve root C4-5 moderate foraminal narrowing on the right C5-6 moderate foraminal narrowing on the left Status: Acute (6) Transient global amnesia: Problem comment: -per EMR, possibly June 2018 Status: Acute Total Time Spent Total Time Spent: Today I spent 75 minutes seeing the patient, reviewing Expanse and EPIC notes/diagnostics, discussing the care plan with our care time that includes social work, PT/OT, pharmacy, RT, longterm and documenting my impressions and plan in the medical record. Hospitalist- H&P: HPI History of Present Illness Date Seen: 02/04/25 Chief complaint: L arm tingling Narrative: Chelly Amador is a 69 year old female past medical history significant for dysarthria, simple partial seizures, memory loss, alcohol use disorder, C7 radiculopathy, vertigo is admitted to the medical floor from the ED for observation and further stroke workup with left upper extremity paresthesias. Patient is seen sitting up in bed. Unsure of exact time of onset of left upper extremity paresthesias. Thinks maybe it was there when she awoke around 3:30-4:00 a.m.. Was not present when she went to bed last night. Numbness and tingling is persisting tonight from the left hand to elbow. No change in strength or loss of range of motion. No weakness. Denies any recent trauma or injury. Had a bug bite to the left hand 2 weeks ago and only brings this up because she has a family member currently in the hospital with Guillain-[place] thought to be caused by a bug bite. Denies neck pain. Currently, no headache or dizziness. No recent fevers. Denies chest pain or shortness of breath. No recent nausea, vomiting, diarrhea. No UTI symptoms. PCP is Dr. Chelly Metcalf. Former smoker. Alcohol use in remission, sober for and a half years. Previously drink 1-2 bottles of wine daily for 12 years. Is concerned that some of her neurological symptoms she has been experiencing this year could be related to her previous alcohol use. Review of Systems Narrative: REVIEW OF SYSTEMS: Complete review of systems performed and negative unless otherwise stated in HPI or below. Medical Decision Making Medical Decision Making Code Status: Full code [facility] Medical History Alcohol use disorder ?F10.90 - Alcohol use, unspecified, uncomplicated (ICD-10) Memory difficulty ?R41.3 - Other amnesia (ICD-10) C7 radiculopathy ?M54.12 - Radiculopathy, cervical region (ICD-10) Vertigo ?R42 - Dizziness and giddiness (ICD-10) Dysarthria ?R47.1 - Dysarthria and anarthria (ICD-10) Transient global amnesia ?G45.4 - Transient global amnesia (ICD-10) Spells of speech arrest ?R47.89 - Other speech disturbances (ICD-10) Right inguinal hernia ?K40.90 - Unilateral inguinal hernia, without obstruction or gangrene, not specified as recurrent (ICD-10) Simple partial seizures ?G40.109 - Localization-related (focal) (partial) symptomatic epilepsy and epileptic syndromes with simple partial seizures, not intractable, without status epilepticus (ICD-10) Meds Home Medications and Allergies Home Medications ?Medication ?Instructions ?Recorded ?Confirmed ?Type meclizine 25 mg chewable tablet 25 mg PO TID PRN #15 tabs 04/24/24 Rx (Antivert) lamotrigine 25 mg tablet 50 mg PO DAILY 02/04/25 02/04/25 History Allergies Allergy/AdvReac Type Severity Reaction Status Date / Time epinephrine AdvReac Palpitation Verified 02/04/25 18:12 s toothpaste Allergy Intermediate Blister Uncoded 04/24/24 11:52 Exam Narrative: Exam Narrative: PHYSICAL EXAM General: Pleasant, conversant, NAD HEENT: Normocephalic, atraumatic, sclera white, EOMI, oral mucosa moist Cardiovascular: RRR, S1S2. No pitting edema Pulmonary: CTA bilaterally without rhonchi, rales, expiratory wheezes. No dyspnea Abdominal: Soft, nondistended, NTTP Neurological: Alert, answering questions appropriately, cranial nerves intact, no focal findings currently Extremities: No gross joint deformity or swelling. AROMI. Neurovascularly intact Skin: Warm, dry, intact. No evidence of bug bite, swelling, redness. Const: Vital Signs, click to edit/add: Vital Signs - 24 hr 02/04/25 17:50 Temperature 98.7 F Pulse Rate [Right Pulse Oximeter] 72 Respiratory Rate 18 Blood Pressure [Ri ght Upper Arm] 158/97 H Pulse Oximetry 98 Oxygen Delivery Me thod Room Air Hospitalist - H&P: Result Labs Labs: Short CBC 02/04/25 Range/Units 18:50 WBC 6.58 (4.50-11.00) K/uL Hgb 12.8 (12.0-16.0) gm/dL Hct 37.5 (33.0-51.0) % Plt Count 277 (140-440) K/uL BMP 02/04/25 18:50 Sodium 128 L Potassium 3.9 Chloride 95 L Carbon Dioxide 28 BUN 12 Creatinine 0.7 Glucose 96 Calcium 8.9 Urine 02/04/25 Range/Units 19:29 Urine Color Yellow (Yellow) Urine Appearance Clear (Clear) Urine pH 7.0 (5.0-8.5) Ur Specific [place] 1.010 (1.000-1.030) Urine Protein Negative (Negative) Urine Glucose (UA) Negative (Negative) ECG Attestation: I personally reviewed and interpreted this ECG as follows: Interpretation: NSR, ventricular rate 67, QTC [address] head: Attestation: I have reviewed the pertinent imaging results. Radiologist's impression: Brain: No acute hemorrhage. No acute infarct. No significant mass effect or midline shift. No gross evidence of a mass lesion or cerebral edema. Mild chronic senescent . Ventricles: No acute abnormality appreciated. Orbits, sinuses, mastoids: No acute abnormality appreciated. Calvarium and soft tissues: No acute abnormality appreciated. Impression: No acute intracranial abnormality appreciated. CTA head/neck: Attestation: I have reviewed the pertinent imaging results. Radiologist's impression: Technique: CT angiogram of the head and neck following 95 mL Isovue 370 IV contrast. Multiplanar MIP images obtained. Comparison: None Findings: Preliminary report, full report to follow. Impression: CTA head: No acute abnormality appreciated. CTA neck: No acute abnormality appreciated.
[2025-02-04] MEDS: ASPIRIN EC 325 MG TABLET PO (20:27)
[2025-02-04] MEDS: ENOXAPARIN 30 MG/0.3ML INJ SUBCUT (22:39)
[2025-02-04] MEDS: SODIUM CHLORIDE 0.9 % (FLUSH) 10 ML SYRINGE 5 ML IVF (22:39)
[2025-02-05 03:33] VITALS: BP 97/68; PULSE 50; RESP 14; TEMP 37.1; O2SAT 97
[2025-02-05 05:00] VITALS: PULSE 62
--- NOTE | 2025-02-05 05:07 | PC.NURSE ---
Pt arrived to the floor at 2049; pleasant, alert and oriented. VSS. Tele reads NSR. Pt stated numbness and tingling in left arm lessened throughout shift. Strength equal in both hands. Denies pain. Pt on 1500 FR. Independent. Pt in bed, appears to be resting, call light within reach. ?
[2025-02-05 07:08] LABS: Hematocrit* 36.1 % (33.0-51.0); Hemoglobin* 12.4 gm/dL (12.0-16.0); Mean Corpuscular HGB Conc 34 gm/dL (32-36); Mean Corpuscular Hemoglobin 31 pg (26-34); Mean Corpuscular Volume 90 fL (80-100); Red Blood Count* 4.00 m/uL (4.00-5.20); White Blood Count* 4.08 K/uL (4.50-11.00)
[2025-02-05 07:14] LABS: Slide Review Reflex No
[2025-02-05 07:25] LABS: Chloride* 105 mmol/L (96-114); Potassium* 3.9 mmol/L (3.6-5.1); Sodium* 136 mmol/L (135-149)
[2025-02-05 07:28] LABS: Anion Gap 2 mEq/L (7-15); Blood Urea Nitrogen* 8 mg/dL (7-30); Calcium* 8.9 mg/dL (8.4-10.6); Carbon Dioxide* 29 mmol/L (20-32); Cholesterol* 202 mg/dL (90-199); Creatinine* 0.8 mg/dL (0.5-1.5); Est. Creatinine Clearance* 46.50; Estimated Glomerular Filt Rate 80 ml/min; Glucose* 86 mg/dL (60-115); Triglycerides* 161 mg/dL (40-149)
[2025-02-05 07:29] LABS: HDL Cholesterol* 49 mg/dL (>=50)
[2025-02-05 07:47] VITALS: PULSE 51
[2025-02-05] MEDS: 5 % DEXTROSE 1000 ML 1,000 ML 50 ML IV (07:58)
[2025-02-05 08:00] VITALS: BP 96/67; PULSE 62; RESP 16; TEMP 36.5; O2SAT 98
--- NOTE | 2025-02-05 08:00 | CRLHL7_ITS ---
For Patients: As a result of the Cures Act, medical imaging exams and procedure reports are released immediately into your electronic medical record. You may view this report before your referring provider. If you have questions, please contact your health care provider. INDICATION: Lower extremity numbness. COMPARISON: 02/04/2025. TECHNIQUE: Multiplanar T1, T2, FLAIR and diffusion-weighted imaging. FINDINGS: Normal brain parenchymal morphology. Scattered foci of T2/FLAIR signal hyperintensity within the white matter of both cerebral hemispheres are nonspecific and may represent chronic deep white matter small vessel ischemic changes or sequela migraine headache. No intracranial hemorrhage. No abnormal ventricular dilatation. Intracranial vascular flow voids are preserved. No mass effect. No midline shift. No restricted diffusion to suggest acute ischemia. No susceptibility artifact of remote hemorrhage. Bilateral orbits are unremarkable. Normal appearing sella. Visualized paranasal sinuses remarkable. Bilateral mastoid effusions, right greater left. IMPRESSION: 1. No acute intracranial abnormality 2. Normal brain parenchymal morphology. Scattered foci of T2 signal within the white matter of both cerebral hemispheres are nonspecific and may represent chronic deep white matter small vessel ischemic changes or sequela migraine headache 3. No acute or chronic intracranial hemorrhage 4. Bilateral mastoid effusions, right greater than left. Dictated by Jason Abraham MD @ 02/05/2025 10:17:25 AM (Electronically Signed)
[2025-02-05] MEDS: SODIUM CHLORIDE 0.9 % (FLUSH) 10 ML SYRINGE 5 ML IVF (08:05)
[2025-02-05 09:00] VITALS: PULSE 62
[2025-02-05] MEDS: ASPIRIN 81 MG TABLET EC PO (09:19)
[2025-02-05 10:47] VITALS: BP 89/63; PULSE 70; RESP 16; TEMP 36.6; O2SAT 98
--- NOTE | 2025-02-05 11:09 | REH.PT ---
PT order received. Patient seen by OT and patient reporting no need to evaluate as she is up walking independently and has no concerns. Offered prescription/order for outpatient PT and patient's nurse given signed order as pt undergoing Echo this am. Will cancel inpatient PT order.
[2025-02-05 12:17] LABS: Sodium* 137 mmol/L (135-149)
--- NOTE | 2025-02-05 12:50 | PM.DS1 ---
DS: Providers Provider Date Seen: 02/05/25 Date of admission: 02/04/25 20:38 Primary care physician: Chelly Metcalf MD Admitting Clinician: Radha Poon MD Consults: OT, Stroke Neurology Attending Physician on discharge: Rocio Redding MD Date of Discharge: 02/05/25 DS: Diagnosis Discharge Diagnosis (1) Paresthesias: Status: Acute Problem details: -left arm numbness and tingling, onset approximately 0400 on 02/04/25 -CT/CTA head/neck show no acute abnormalities -notable sodium of 128 (no history of hyponatremia) -MRI 02/05 without acute pathology (2) Hyponatremia: Status: Acute Problem details: -sodium 128 on admission, treated with 1L NS in ER and fluid restriction -notably felt very thirsty on 02/04 and drank a large amount of free water prior to ER presentation; also on Lamictal as risk factor -up to 136 on 02/05; treated with D5W (low risk for ODS with NA >125) -outpatient f/u (3) Simple partial seizures: Status: Acute Problem details: -diagnosed July 2024, intermittent episodes since 2019 -continue Lamictal 12.5 mg b.i.d.- started approx 10 weeks ago. Lamictal level ordered in ED, pending on d/c -followed by [facility] neurology (4) Dysarthria: Status: Acute Problem details: -onset 2019 -thought to be simple partial seizures -lamictal (5) C7 radiculopathy: Status: Acute Problem details: -noted neurology evaluation 08/26/2024, neck pain/left arm pain (does not recall paresthesia related to this) -outpatient f/u with PCP -MRI 10/01/2021: 1. Multilevel cervical spondylosis. 2. No high-grade spinal canal stenosis or extrinsic cord deformity 3. Cervical cord signal is normal 4. C6-7 moderate left foraminal stenosis with impingement exiting left C7 nerve root C4-5 moderate foraminal narrowing on the right C5-6 moderate foraminal narrowing on the left (6) Transient global amnesia: Status: Acute Problem details: -per EMR, possibly June 2018 DS: Summary Hospital Course Hospital Course: Chelly was admitted to the hospital on 02/04/2025 for left upper extremity paresthesia. Followed by Stroke Neurology during stay; reassuring CTA, MRI, TTE. LDL of 121; lifelong history of hyperlipidemia that has been managed by diet exercise. She will follow up with her PCP to discuss further treatment for hyperlipidemia. Also noted to hyponatremia admission with a sodium of 128; no history of this. Received normal saline in the ER and was placed on the fluid restriction with improvement of sodium to baseline of 136 in a 12 hour period. Given that her sodium was greater than 125, low risk for osmotic demyelination; nevertheless, was given D5W prior to discharge. Also noted to have hypotension, which is baseline per chart review and patient history. No changes made, asymptomatic. Patient appropriate for discharge home with close PCP follow-up on 02/05/2025 Status at Discharge Functional status at discharge: independent ambulation Overall status at discharge: patient is progressing back to baseline Time Spent with Patient Time attestation: Total time spent providing and/or coordinating discharge services: Time spent: Greater than 30 minutes Specific discharge activities: multidisciplinary team discussion, stroke neurology consult, patient Education Exam Narrative: Exam Narrative: GEN: Alert and oriented, seen sitting in bed and also sitting in bedside chair, nontoxic HEENT: Normal external ears, EOMIs bilaterally, no scleral icterus CV: RRR, No concerning murmurs R: LCTA bilaterally without concerning wheezing Ext: wwp, no concerning edema Skin: No concerning skin lesions or rashes on exposed skin Neuro: No focal deficits, no facial droop, no resting tremor Psych: Appropriate Const: Vital Signs, click to edit/add: Vital Signs - 24 hr 02/04/25 17:50 02/04/25 18:08 02/04/25 18:09 Temperature 98.7 F Pulse Rate 71 70 Pulse Rate [Pulse Oximeter] Pulse Rate [Right Pulse Oximeter] 72 Respiratory Rate 18 18 17 Blood Pressure 163/89 H Blood Pressure [Ri ght Arm] Blood Pressure [Ri ght Upper Arm] 158/97 H Pulse Oximetry 98 99 99 Oxygen Delivery Me thod Room Air 02/04/25 18:15 02/04/25 18:30 02/04/25 18:32 Temperature Pulse Rate 69 63 65 Pulse Rate [Pulse Oximeter] Pulse Rate [Right Pulse Oximeter] Respiratory Rate 12 18 14 Blood Pressure 152/106 H Blood Pressure [Ri ght Arm] Blood Pressure [Ri ght Upper Arm] Pulse Oximetry 98 96 95 Oxygen Delivery Me thod 02/04/25 18:45 02/04/25 19:16 02/04/25 19:30 Temperature Pulse Rate 66 70 63 Pulse Rate [Pulse Oximeter] Pulse Rate [Right Pulse Oximeter] Respiratory Rate 16 14 153 H Blood Pressure Blood Pressure [Ri ght Arm] Blood Pressure [Ri ght Upper Arm] Pulse Oximetry 95 99 98 Oxygen Delivery Me thod 02/04/25 19:32 02/04/25 19:45 02/04/25 20:00 Temperature Pulse Rate 62 66 67 Pulse Rate [Pulse Oximeter] Pulse Rate [Right Pulse Oximeter] Respiratory Rate 20 17 17 Blood Pressure 149/90 H Blood Pressure [Ri ght Arm] Blood Pressure [Ri ght Upper Arm] Pulse Oximetry 98 97 99 Oxygen Delivery Me thod 02/04/25 20:02 02/04/25 20:16 02/04/25 20:30 Temperature Pulse Rate 68 64 Pulse Rate [Pulse Oximeter] Pulse Rate [Right Pulse Oximeter] Respiratory Rate 18 15 16 Blood Pressure 147/96 H Blood Pressure [Ri ght Arm] Blood Pressure [Ri ght Upper Arm] Pulse Oximetry 98 99 Oxygen Delivery Me thod 02/04/25 20:32 02/04/25 20:50 02/04/25 20:50 Temperature 97.9 F Pulse Rate 64 Pulse Rate [Pulse Oximeter] 66 Pulse Rate [Right Pulse Oximeter] Respiratory Rate 15 18 18 Blood Pressure 146/90 H Blood Pressure [Ri ght Arm] 147/100 H Blood Pressure [Ri ght Upper Arm] Pulse Oximetry 99 100 100 Oxygen Delivery Me od Room Air Room Air 02/04/25 21:00 02/04/25 21:00 02/04/25 22:50 Temperature 97.6 F Pulse Rate 61 Pulse Rate [Pulse Oximeter] 66 56 L Pulse Rate [Right Pulse Oximeter] Respiratory Rate 16 Blood Pressure Blood Pressure [Ri ght Arm] 126/88 Blood Pressure [Ri ght Upper Arm] Pulse Oximetry 96 Oxygen Delivery Me thod Room Air 02/04/25 23:00 02/05/25 03:33 02/05/25 05:00 Temperature 98.7 F Pulse Rate Pulse Rate [Pulse Oximeter] 56 L 50 L 62 Pulse Rate [Right Pulse Oximeter] Respiratory Rate 16 14 Blood Pressure Blood Pressure [Ri ght Arm] 97/68 Blood Pressure [Ri ght Upper Arm] Pulse Oximetry 97 Oxygen Delivery Me thod Room Air 02/05/25 07:47 02/05/25 08:00 02/05/25 09:00 Temperature 97.7 F Pulse Rate 51 L Pulse Rate [Pulse Oximeter] 62 62 Pulse Rate [Right Pulse Oximeter] Respiratory Rate 16 Blood Pressure Blood Pressure [Ri ght Arm] 96/67 Blood Pressure [Ri ght Upper Arm] Pulse Oximetry 98 Oxygen Delivery Me thod Room Air 02/05/25 10:47 Temperature 98 F Pulse Rate Pulse Rate [Pulse Oximeter] 70 Pulse Rate [Right Pulse Oximeter] Respiratory Rate 16 Blood Pressure Blood Pressure [Ri ght Arm] 89/63 L Blood Pressure [Ri ght Upper Arm] Pulse Oximetry 98 Oxygen Delivery Me thod Room Air DS: Data Data Completed and Pending Labs on day of discharge: Labs from last 24 hours 02/05/25 02/05/25 02/04/25 12:00 06:19 21:00 WBC 4.08 L RBC 4.00 Hgb 12.4 Hct 36.1 MCV 90 MCH 31 MCHC 34 RDW Coeff of Cipriano Plt Count 263 Neut % (Auto) Lymph % (Auto) [place] % (Auto) Eos % (Auto) Baso % (Auto) Neut # (Auto) Lymph # (Auto) [place] # (Auto) Eos # (Auto) Baso # (Auto) Abs Immat Gran (auto) Imm/Tot Granulo (auto) INR APTT Sodium 137 136 Potassium 3.9 Chloride 105 Carbon Dioxide 29 Anion Gap 2 L BUN 8 Creatinine 0.8 Estimated Creat Clear 46.50 Estimated GFR 80 Glucose 86 Hemoglobin A1c 5.7 H Calcium 8.9 Magnesium Triglycerides 161 H Cholesterol 202 H LDL Cholesterol, Calc 121 H HDL Cholesterol 49 L TSH Urine Color Urine Appearance Urine pH Ur Specific [place] Urine Protein Urine Glucose (UA) Urine Ketones Urine Blood Urine Nitrite Urine Bilirubin Urine Urobilinogen Ur Leukocyte Esterase Urine RBC Urine WBC Ur Squamous Epith Cells Urine Bacteria Lamotrigine (Conven) Ethyl Alcohol Lab Acknowledgement Test Added POC Creatinine 02/04/25 02/04/25 02/04/25 20:04 19:26 18:50 WBC 6.58 RBC 4.18 Hgb 12.8 Hct 37.5 MCV 90 MCH 31 MCHC 34 RDW Coeff of Cipriano 11.6 Plt Count 277 Neut % (Auto) 72.4 H Lymph % (Auto) 19.1 L [place] % (Auto) 6.8 Eos % (Auto) 0.9 Baso % (Auto) 0.6 Neut # (Auto) 4.80 Lymph # (Auto) 1.30 [place] # (Auto) 0.40 Eos # (Auto) 0.06 Baso # (Auto) 0.04 Abs Immat Gran (auto) 0.01 Imm/Tot Granulo (auto) 0.2 INR 0.96 APTT 27 Sodium 128 L Potassium 3.9 Chloride 95 L Carbon Dioxide 28 Anion Gap 5 L BUN 12 Creatinine 0.7 Estimated Creat Clear 46.50 Estimated GFR 94 Glucose 96 Hemoglobin A1c Calcium 8.9 Magnesium 2.1 Triglycerides Cholesterol LDL Cholesterol, Calc HDL Cholesterol TSH 2.070 Urine Color Yellow Urine Appearance Clear Urine pH 7.0 Ur Specific [place] 1.010 Urine Protein Negative Urine Glucose (UA) Negative Urine Ketones Negative Urine Blood Trace-intact A Urine Nitrite Negative Urine Bilirubin Negative Urine Urobilinogen 0.2 Ur Leukocyte Esterase Negative Urine RBC 0-2 Urine WBC 0-2 Ur Squamous Epith Cells None Urine Bacteria None Lamotrigine (Conven) Pending Ethyl Alcohol < 0.01 Lab Acknowledgement Test Added Test Added POC Creatinine 0.9 Discharge Plan Discharge Disposition: Home, Self-Care Date of Admission: 02/04/25 20:38 Attending Provider on Discharge: Rocio Redding Primary Care Provider: Chelly Metcalf Condition: Improved Anticipated Discharge Date/Time: 02/05/25 12:06 Discharge Medications: Continued lamotrigine 25 mg tablet 12.5 mg PO BID Discharge Orders: Discharge Order (Routine); Ordered 02/05/25 Ordered By: Rocio Redding Patient Education: Lamotrigine (By mouth), Hyponatremia (DC) Additional Instructions: Regular diet (no need to limit salt), keep protein supplementation up as well. See Dr. Metcalf in f/u to discuss next steps for L arm (carpal tunnel evaluation vs imaging of your cervical spine, etc) Activity Level: Activity as Tolerated Discharge Diet: Regular Follow Up Appointments: Keeley Messer MD [Referring, Family Practice] - 02/07/25 9:30 am Referral Note: [facility] for follow-up. Primary wasn't available. Chelly Metcalf MD [Primary Care Provider, Family Practice] Referral Note: hospital f/u in 5-7 days please Forms: Patient Belongings, MyHealth Info Instructions
--- NOTE | 2025-02-05 13:38 | PC.SOCIAL ---
Initial Psychosocial Assessment: 1.??? Assessment completed with patient and patient's . 2.??? Pt lives at address and phone number on face sheet? Patient's address and phone numbers are correct. Patient lives in own home. 3.?Insurance information? on face sheet is correct? Yes 4.?Contacts? on face sheet are correct? Yes 5.??? Does pt have a Healthcare Directive, POLST or Guardian? Did not obtain 6.??? Who is the pt?s main source/sources of emotional/physical support? Patient's and children. 7.??? Prior to admission did pt need assistance? Yes/No No 8.??? Who provided and what was the assistance needed? N/A 9.??? Was Home Health being provided, by what agency? N/A 10. Does pt use/have medical equipment at home already? What? No 11. Will there be a need for additional assistance at discharge and is this available in previous setting? No 12. If pt needs to go to a higher level of care, are they open to this and do they have facilities they are interested in? N/A 13. How would pt plan to transport at discharge? 14. Is there anyone pt would like social work therapist to contact to discuss discharge plans? No Other information:
--- NOTE | 2025-02-05 14:15 | PC.NURSE ---
Discharge: Patient pleasant and cooperative. Up independently. Vitals stable, BP soft however patient stated this is her baseline, asymptomatic. Still some tingling/numbness in tips of fingers on left side. IV removed with catheter intact. Discharge instructions given, no new med orders, discussed follow up. Patient discharged @ 1357 with to home.
== END 2025-02-05 13:57 | disposition home or self-care (01) ==
LOC: ED 20:17 → MEDSURG 20:39
PROVIDERS: Family Medicine; Physician Assistant; Admitting Provider Family Medicine; Emergency Provider Family Medicine; PCP Family Medicine; Visit Provider Family Medicine
DX: R20.2 Paresthesia of skin (principal); E87.1 Hypo-osmolality and hyponatremia; G40.109 Localization-related (focal) (partial) symptomatic epilepsy and epileptic syndromes with simple partial seizures, not intractable, without status epilepticus; R47.1 Dysarthria and anarthria; M54.12 Radiculopathy, cervical region; G45.4 Transient global amnesia; I95.9 Hypotension, unspecified; Z51.81 Encounter for therapeutic drug level monitoring
CPT/HCPCS: 36415; 70450; 70496; 70498; 70551; 80048; 80061; 80175; 81001; 82077; 82565; 83036; 83735; 84295; 84443; 85025; 85027; 85610; 85730; 93306; 97165; 99215; 99284; 99285; A9270; G0378; J1650; J7030; J7070; Q9967